=== PATIENT | female | born 1975 | race African-American/Black ===

== ENCOUNTER 2024-01-16 20:07 | Emergency (ER) | payer MEDICAID ==
[~2024-01-16] VITALS: Ht 157.5 cm; Wt 73.0 kg
[2024-01-16 20:25] VITALS: BP 110/79; PULSE 100; TEMP 98.2; O2SAT 95
[2024-01-16] MEDS: ONDANSETRON 4MG ODT PO STA (20:31)
[2024-01-16] MEDS: MAGNESIUM/ALUMINUM HYDROXIDE/SIMETHICONE 30ML UDC PO STA (20:31)
[2024-01-16] MEDS ORDERED: DICYCLOMINE 10 MG/5 ML ORAL SYR PO STA (20:31)
[2024-01-16] MEDS: FAMOTIDINE 20MG TABLET PO ONE (20:45)
[2024-01-16 21:05] LABS: EOSINOPHILS % 1.1 % (0.0-5.0); HEMATOCRIT. 43.3 % (36.0-48.0); HEMOGLOBIN. 14.5 g/dL (12.0-16.0); LYMPHOCYTES % 36.6 % (20.0-50.0); MEAN CORPUSCULAR HEMOGLOBIN 32.8 pg (28.0-32.0); MEAN CORPUSCULAR HGB CONC 33.6 g/dL (31.0-37.0); MEAN CORPUSCULAR VOLUME 97.9 fL (81.0-99.0); MEAN PLATELET VOLUME 8.6 fl (7.4-10.4); NEUTROPHILS % 53.3 % (40.0-76.0); PLATELET 306 x1000/uL (130-400); RED BLOOD CELL COUNT 4.42 mill/uL (4.2-5.4); RED CELL DISTRIBUTION WIDTH 13.4 % (11.6-14.6); WHITE BLOOD COUNT 5.2 x1000/uL (4.5-11.0)
[2024-01-16 21:10] LABS: CHLORIDE 100 mEq/L (98-107); POTASSIUM 3.5 mEq/L (3.5-5.1); SODIUM 139 mEq/L (136-145)
[2024-01-16 21:11] LABS: CARBON DIOXIDE 27 mEq/L (21-32)
[2024-01-16 21:12] LABS: CALCIUM 10.2 mg/dL (8.7-10.4)
[2024-01-16 21:16] LABS: CREATININE 1.3 mg/dL (0.6-1.0); GLUCOSE 73 mg/dL (70-105)
[2024-01-16 21:17] LABS: UREA NITROGEN BLOOD 21 mg/dL (9-23)
[2024-01-16 21:18] LABS: ALANINE AMINOTRANSFERASE 30 IU/L (10-49); ALBUMIN 5.3 g/dL (3.2-4.8); ASPARTATE AMINOTRANSFERASE 31 IU/L (<34)
[2024-01-16 21:19] LABS: BILIRUBIN DIRECT 0.3 mg/dL (<=3.0); BILIRUBIN TOTAL 0.9 mg/dL (0.1-1.0); ETHANOL BLOOD < 10 mg/dL (<10); PROTEIN TOTAL 8.7 g/dL (6.0-8.3)
[2024-01-16 21:29] LABS: HCG SCREEN NEGATIVE
[2024-01-16] MEDS: DICYCLOMINE HCL 10MG CAPSULE PO NR (21:29)
[2024-01-16] MEDS ORDERED: FAMO-135 MT (21:59)
[2024-01-16 22:00] VITALS: RESP 16
== END 2024-01-16 23:04 | disposition home or self-care (01) ==
LOC: ER 20:07
DX: K29.70 Gastritis, unspecified, without bleeding (principal); F19.10 Other psychoactive substance abuse, uncomplicated; F10.20 Alcohol dependence, uncomplicated; Y90.0 Blood alcohol level of less than 20 mg/100 ml
CPT/HCPCS: 80076; 80048; 80320; 84703; 83690; 85025; 36415; 99284; Q0162; G0480